=== PATIENT | male | born 1980 | race Two or more races ===

== ENCOUNTER 2020-06-23 11:32 | Emergency (ER) | payer OTHER, SELFPAY ==
--- NOTE | 2020-06-23 12:24 | RAD REPORT ---
EXAM DESCRIPTION: CT - Head C Spine Mpr Wo Con - 06/23/2020 11:58 am CLINICAL HISTORY: Head and neck injury status post fall. Head and neck pain COMPARISON: None. TECHNIQUE: Computed axial tomography of the head and cervical spine was obtained. Sagittal and coronal reconstruction was performed. All CT scans are performed using dose optimization technique as appropriate and may include automated exposure control or mA/KV adjustment according to patient size. FINDINGS: A small area of increased density within the left frontal lobe probably a combination of s ubarachnoid and intraparenchymal blood. The ventricles are normal in caliber. An extra-axial fluid collection is not noted.Fluid within the v isualized sinuses and mastoids is not seen A cervical fracture is not visualized. No dislocation is noted. IMPRESSION: A small area of increased density within the left frontal lobe probably a combination of subarachnoid and intraparenchymal blood. A cervical fracture is not visualized. Dr Pineda of the emergency room was notified at 12:18 p.m. June 23, 2020
--- NOTE | 2020-06-23 12:29 | RAD REPORT ---
EXAM DESCRIPTION: RAD - Hand Right 3 View - 06/23/2020 12:13 pm CLINICAL HISTORY: Right hand pain status post injury FINDINGS: No fracture or dislocation is seen.
[2020-06-23] MEDS ORDERED: levETIRAcetam 1,000 MG in NA CHLORIDE 0.9% 100 ML IV ONE (13:00)
[2020-06-23 13:13] LABS: Absolute Lymphocytes (CBC) 1.2 K/uL (0.7-4.9); Basophils % 0.5 % (0-1.3); Hematocrit 49.3 % (39.6-49.0); Lymphocytes % 8.4 % (15.3-44.8); MPV 8.1 fL (7.6-11.3); RBC Red Blood Cell Count 5.57 M/uL (4.33-5.43)
[2020-06-23] MEDS ORDERED: DIAZEPAM 2 MG TABLET ONE (13:16)
[2020-06-23 13:17] LABS: Protime INR 0.94
[2020-06-23 13:23] LABS: BUN Blood Urea Nitrogen 12 mg/dL (7-18); Bicarbonate 26 mmol/L (21-32); Glucose Level 105 mg/dL (74-106); Potassium 3.6 mmol/L (3.5-5.1); Sodium Level 142 mmol/L (136-145)
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
[2020-06-23 14:06] LABS: Blood Morphology Comment NOTED (NOT SEEN); Platelet Estimate ADEQ; White Blood Cell Scan OK (OK)
[2020-06-23 14:07] LABS: Anisocytosis 1+; Poikilocytosis 2+
[2020-06-23 15:28] VITALS: TEMP 98.7
[2020-06-23 15:31] VITALS: O2SAT 100
[2020-06-23 15:32] VITALS: BP 124/77
== END 2020-06-23 14:48 | disposition short-term general hospital (02) ==
LOC: ER 11:32
DX: S06.6X0A Traumatic subarachnoid hemorrhage without loss of consciousness, initial encounter (principal); M79.644 Pain in right finger(s); W22.8XXA Striking against or struck by other objects, initial encounter; Y93.89 Activity, other specified; Y92.89 Other specified places as the place of occurrence of the external cause
CPT/HCPCS: 36415; 70450; 72125; 80048; 85025; 85610; 85730; 96374; 99285; J1953